=== PATIENT | female | born 1985 | race Caucasian/White ===

== ENCOUNTER 2016-10-15 15:45 | Emergency (ER) | payer MEDICAID ==
[~2016-10-15] VITALS: Wt 89.0 kg
[~2016-10-15 15:45] MED LIST: FERR240T9 PO; PREN-39 PO
[2016-10-15] MEDS ORDERED: morphine 4 MG/ML VIAL IV STA (17:26)
[2016-10-15] MEDS ORDERED: ONDANSETRON 4 MG INJ IV STA (17:26)
--- NOTE | 2016-10-15 17:37 | ERD ---
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 NO N/V/D HPI 30-year-old female otherwise healthy comes in with left-sided upper quadrant abdominal pain that started about 3 hours ago. She states that she was lying down in bed with her child and she had gotten up and when she did that she had sudden onset of sharp pain localized in the left upper quadrant. She denies any fevers or chills, nausea, vomiting or diarrhea. ROS All systems reviewed and are negative except as per history of present illness. Medications Home Meds Active Scripts Nitrofurantoin Monohyd Macrocr* (Macrobid*) 100 Mg Capsr, 100 MG PO BID for 7 Days, CAP Prov:RAFA DENISE PA-C 10/15/16 Naproxen* (Naprosyn*) 500 Mg Tablet, 500 MG PO BID Y for PAIN AND/OR INFLAMMATION, #30 TAB Prov:RAFA DENISE PA-C 10/15/16 Reported Medications Ferrous Gluconate (Iron) 1 Tab Tablet, 1 TAB PO DAILY 09/04/14 Vits W-Ca,Fe,Fa(<1MG) ( Vitamins) 1 Tab Tablet, 1 TAB PO DAILY 09/04/14 Allergies Allergies: Coded Allergies: No Known Allergy (Unverified , 10/15/14) PMhx/Soc History of Surgery: No Anesthesia Reaction: No Hx Neurological Disorder: No Hx Respiratory Disorders: No Hx Cardiac Disorders: No Hx Psychiatric Problems: No Hx Miscellaneous Medical Probl: No Hx Alcohol Use: No Hx Substance Use: No Hx Tobacco Use: No Physical Exam Vitals Vital Signs Date Time Temp Pulse Resp B/P Pulse Ox O2 Delivery O2 Flow Rate FiO2 10/15/16 19:19 98.4 62 20 121/69 100 Room Air 10/15/16 15:47 98.5 111 22 147/100 100 Physical Exam \General: Well-developed, well-nourished. The patient appears in no acute distress. HEENT: Head is normocephalic, atraumatic. No scleral icterus. Pupils are equal , round, and reactive. Oral mucous membranes are moist. No pharyngeal erythema. Neck: Supple. Nontender. Lungs: Clear to auscultation. Normal air movement. Heart: Regular rate and rhythm. S1 and S2 are normal. No murmurs, gallops, or rubs. Abdomen: Soft, tender left upper nondistended. Bowel sounds are normoactive. No CVA tenderness no McBurney's tenderness, no peritoneal signs or guarding. No hepatosplenomegaly. Extremities: No clubbing or cyanosis. Normal pulses. Moving extremities x 4. No weakness. Neurologic: Alert and oriented 3. No focal deficits. Skin: Normal turgor. No rash or lesions. Result Diagram: 10/15/16 1800 10/15/16 1800 Results 24 hrs Laboratory Tests Test 10/15/16 17:34 10/15/16 18:00 Urine Bacteria FEW Urine Bilirubin NEGATIVE Urine Clarity CLEAR Urine Color LT. YELLOW Urine Epithelial Cells FEW Urine Glucose NEGATIVE% Urine Hemoglobin NEGATIVE Urine Ketones NEGATIVE Urine Leukocyte Esterase TRACE Urine Microscopic RBC 0-2/HPF Urine Microscopic WBC 5-10/HPF Urine Nitrite NEGATIVE Urine Specific [place] <=1.005 Urine Total Protein NEGATIVE Urine Urobilinogen 0.2 E.U./dL Urine pH 6.0 Alanine Aminotransferase (ALT/SGPT) 24IU/L Albumin 4.2g/dl Albumin/Globulin Ratio 1.20 Alkaline Phosphatase 75IU/L Anion Gap 18 Aspartate Amino Transf (AST/SGOT) 24IU/L Basophils # 0.010^3/ul Basophils % 0.2% Blood Urea Nitrogen 7mg/dl Calcium Level 9.1mg/dl Carbon Dioxide Level 24mmol/L Chloride Level 104mmol/L Creatinine 0.55mg/dl Direct Bilirubin 0.00mg/dl Eosinophils # 0.110^3/ul Eosinophils % 0.8% Globulin 3.50g/dl Glucose Level 87mg/dl Hematocrit 42.1% Hemoglobin 14.4g/dl Indirect Bilirubin 0.2mg/dl Lipase 51U/L Lymphocytes # 3.210^3/ul Lymphocytes % 31.3% Mean Corpuscular Hemoglobin 29.9pg Mean Corpuscular Hemoglobin Concent 34.3g/dl Mean Corpuscular Volume 87.1fl Mean Platelet Volume 9.3fl Monocytes # 0.510^3/ul Monocytes % 5.0% Neutrophils # 6.510^3/ul Neutrophils % 62.7% Nucleated Red Blood Cells # 0.010^3/ul Nucleated Red Blood Cells % 0.0/100WBC Platelet Count 15869^3/UL Potassium Level 3.6mmol/L Red Blood Count 4.8310^6/ul Red Cell Distribution Width 13.3% Sodium Level 142mmol/L Total Bilirubin 0.2mg/dl Total Protein 7.7g/dl White Blood Count 10.310^3/ul Current Medications Medications (Trade) Dose Ordered Sig/[place] Route PRN Reason Start Time Stop Time Status Last Admin Dose Admin Morphine Sulfate (morphine) 4 mg ONCE STAT IV 10/15/16 17:26 10/15/16 17:27 DC 10/15/16 17:46 Ondansetron HCl (Zofran Inj) 4 mg ONCE STAT IV 10/15/16 17:26 10/15/16 17:27 DC 10/15/16 17:46 PROCEDURE: CT abdomen and pelvis without IV contrast. CLINICAL INDICATION: Abdominal pain TECHNIQUE: CT scan of the abdomen and pelvis without contrast was performed on the [employer] volumetric [address] scanner. The patient was scanned without intravenous contrast. Coronal and sagittal reformatted images were obtained from the axial source images. The CTDI vol is 20.23 mGy and the DLP is 1199.92 mGy-cm. COMPARISON: None. FINDINGS: CT abdomen: The lung bases are clear. The heart size is not enlarged and is without pericardial thickening or effusion. The liver is normal in size and density and is without focal mass or intrahepatic biliary dilatation. The spleen is normal in size and homogeneous in density. The stomach is grossly unremarkable. The pancreas as visualized is normal. The gallbladder and biliary tree are unremarkable and there is no evidence for common bile duct dilatation. The adrenal glands are symmetric and normal. The kidneys are symmetrically unremarkable as well. No renal calculus or obstructive uropathy or mass lesion is seen. The aorta is of normal in caliber . There is no retroperitoneal lymphadenopathy. The suresh hepatis region is clear. Scattered stool in the large bowel is seen. The small and large bowel and mesentery, as visualized, are otherwise unremarkable. The normal appendix is identified. CT pelvis: The pelvic organs are normal. The pelvic sidewalls and inguinal regions are clear. No pelvic mass, lymphadenopathy, or free fluid is seen. No acute inflammation is seen. The urinary bladder is within normal limits. The surrounding osseous structures are unremarkable. No osteolytic or osteoblastic lesion is detected. IMPRESSION: No acute pathology in the abdomen and pelvis. RPTAT: HPNM Jacob Montero, Physician Date Time Electronically viewed and signed by Jacob Montero, Physician on 10/15/2016 18 :30 / Procedures/MDM ED course: She was seen and evaluated, she was placed in a bed, IV line was established and she was given morphine 4 mg and Zofran 4 mg IV. Blood and urine were obtained. MDM: 30-year-old female presents with acute onset of left upper quadrant abdominal pain, differential diagnosis includes muscle strain, gastritis, GERD, other more emergent conditions include a splenic rupture, septic kidney stone, acute coronary syndrome among others. Her pain is reproducible and is in the left lower upper quadrant, I believe that her symptoms are most likely from a musculoskeletal strain versus gastritis. She is laying comfortably at this time without any pain. CT abdomen and pelvis was obtained, there is no evidence of splenic injury, no kidney stone, no masses. Blood work was also unremarkable, patient will be discharged, will be discharged with pain medication. Departure Diagnosis: Primary Impression: Abdominal pain Condition: RAFA Still PA-C Oct 15, 2016 17:37
[2016-10-15 17:51] LABS: ADD UMIC YES; URINE BILIRUBIN (Dip) NEGATIVE (NEGATIVE); URINE BLOOD (Dip) NEGATIVE (NEGATIVE); URINE COLOR LT. YELLOW (YELLOW); URINE GLUCOSE (Dip) NEGATIVE (NEGATIVE); URINE KETONES (Dip) NEGATIVE (NEGATIVE); URINE LEUKOCYTE ESTERASE (Dip) TRACE (NEGATIVE); URINE NITRITE (Dip) NEGATIVE (NEGATIVE); URINE TOTAL PROTEIN (Dip) NEGATIVE (NEGATIVE); URINE UROBILINOGEN (Dip) 0.2 E.U./dL (0.1-1.0)
[2016-10-15 17:59] LABS: BACTERIA,URINE FEW; URINE RBCS 0-2 /HPF (0)
[2016-10-15 18:26] LABS: BASOPHILS % 0.2 % (0.0-2.0); EOSINOPHILS # 0.1 10^3/ul (0.0-0.5); EOSINOPHILS % 0.8 % (0.0-7.0); HEMATOCRIT 42.1 % (37.0-47.0); HEMOGLOBIN 14.4 g/dl (12.0-16.0); LYMPHOCYTES # 3.2 10^3/ul (0.8-2.9); LYMPHOCYTES % 31.3 % (15.0-51.0); MEAN CORPUSCULAR HEMOGLOBIN 29.9 pg (29.0-33.0); MEAN CORPUSCULAR HGB CONC 34.3 g/dl (32.0-37.0); MEAN CORPUSCULAR VOLUME 87.1 fl (82.0-101.0); MEAN PLATELET VOLUME 9.3 fl (7.4-10.4); MONOCYTE # 0.5 10^3/ul (0.3-0.9); NEUTROPHIL # 6.5 10^3/ul (1.6-7.5); NEUTROPHILS % 62.7 % (39.0-77.0); PLATELET COUNT 315 10^3/UL (140-440); RED BLOOD COUNT 4.83 10^6/ul (4.20-5.40); RED CELL DISTRIBUTION WIDTH 13.3 % (11.5-14.5); UNCORRECTED WBC 10.3 10^3/ul (4.8-10.8); WHITE BLOOD COUNT 10.3 10^3/ul (4.8-10.8)
[2016-10-15 18:28] LABS: CONDITION 1
--- NOTE | 2016-10-15 18:31 | RADRPT ---
PROCEDURE: CT abdomen and pelvis without IV contrast. CLINICAL INDICATION: Abdominal pain TECHNIQUE: CT scan of the abdomen and pelvis without contrast was performed on the [employer] volumetric [address] scanner. The patient was scanned without intravenous contrast. Coronal and sagittal refo rmatted images were obtained from the axial source images. The CTDI vol is 20.23 mGy and the DLP is 1199.92 mGy-cm. COMPARISON: None. FINDINGS: CT abdomen: The lung bases are clear. The heart size is not enlarged and is without pericardial thickening or e ffusion. The liver is normal in size and density and is without focal mass or intrahepatic biliary dilatation . The spleen is normal in size and homogeneous in density. The stomach is grossly unremarkable. T he pancreas as visualized is normal. The gallbladder and biliary tree are unremarkable and there is no evidence for common bile duct dilatation. The adrenal glands are symmetric and normal. The kid neys are symmetrically unremarkable as well. No renal calculus or obstructive uropathy or mass lesi on is seen. The aorta is of normal in caliber . There is no retroperitoneal lymphadenopathy. The suresh hepatis region is clear. Scattered stool in the large bowel is seen. The small and large bowel and mesent maryanne, as visualized, are otherwise unremarkable. The normal appendix is identified. CT pelvis: The pelvic organs are normal. The pelvic sidewalls and inguinal regions are clear. No pelvic mass, lymphadenopathy, or free fluid is seen. No acute inflammation is seen. The urinary bladder is wit hin normal limits. The surrounding osseous structures are unremarkable. No osteolytic or osteoblastic lesion is detect ed. IMPRESSION: No acute pathology in the abdomen and pelvis. RPTAT: HPNM Physician Brett Date Time Electronically viewed and signed by Physician Brett on 10/15/2016 18:30 /
[2016-10-15 18:35] LABS: ALBUMIN 4.2 g/dl (3.3-4.9)
[2016-10-15 18:36] LABS: POTASSIUM 3.6 mmol/L (3.5-5.1)
[2016-10-15 18:38] LABS: ALBUMIN/GLOBULIN RATIO 1.2; BILIRUBIN,INDIRECT 0.2 mg/dl (0-1.1); BILIRUBIN,TOTAL 0.2 mg/dl (0.2-1.3); CREATININE 0.55 mg/dl (0.44-1.00); TOTAL PROTEIN 7.7 g/dl (6.1-8.1)
[2016-10-15 18:39] LABS: CALCIUM 9.1 mg/dl (8.4-10.2)
[2016-10-15] MEDS ORDERED: NITR-58 PO (19:05)
[2016-10-15] MEDS ORDERED: NAPR-260 PO (19:05)
[2016-10-15 19:19] VITALS: BP 121/69; PULSE 62; RESP 20; TEMP 98.4
== END 2016-10-15 19:20 | disposition home or self-care (01) ==
LOC: FTE 15:45
DX: R10.12 Left upper quadrant pain (principal)
CPT/HCPCS: 74176; 80053; 81001; 83690; 85025; 96374; 96375; J2270; J2405; Z7502; 81003

== ENCOUNTER 2016-12-03 19:19 | Emergency (ER) | payer MEDICAID ==
[~2016-12-03] VITALS: Ht 157.5 cm; Wt 93.5 kg
[~2016-12-03 19:19] MED LIST changes: +NAPR-260 PO; +NITR-58 PO
[2016-12-03 19:34] VITALS: Ht 157.5 cm; Wt 93.5 kg
[2016-12-03] MEDS ORDERED: IBUP-1542 PO (20:02)
[2016-12-03] MEDS ORDERED: CEPH-443 PO (20:02)
--- NOTE | 2016-12-03 21:40 | ERD ---
ER Documentation Chief Complaint Date/Time DATE: 12/03/16 TIME: 21:38 Chief Complaint right breast pain x 4 days HPI Patient is a 31-year-old female with no medical problems who presents with right -sided breast pain. She says that this is been there for the past 4-5 days. She said that she feels that the top of her nipple. She feels like when she touches it hurts and it hurts to put on her bra. She says that the right breast feels warmer than the left breast. She had subjective fever but has not taken her temperature. She has a "bump" under her right armpit. She tried Tylenol for pain. She does not currently have a primary doctor. ROS All systems reviewed and are negative except as per history of present illness. Medications Home Meds Active Scripts Ibuprofen* (Motrin*) 600 Mg Tab, 600 MG PO Q6H Y for PAIN AND OR ELEVATED TEMP, #30 TAB Prov:TAYLOR MINA MD 12/03/16 Cephalexin* (Keflex*) 500 Mg Capsule, 500 MG PO QID for 7 Days, CAP Prov:TAYLOR MINA MD 12/03/16 Nitrofurantoin Monohyd Macrocr* (Macrobid*) 100 Mg Capsr, 100 MG PO BID for 7 Days, CAP Prov:RAFA DENISE PA-C 10/15/16 Naproxen* (Naprosyn*) 500 Mg Tablet, 500 MG PO BID Y for PAIN AND/OR INFLAMMATION, #30 TAB Prov:RAFA DENISE PA-C 10/15/16 Reported Medications Ferrous Gluconate (Iron) 1 Tab Tablet, 1 TAB PO DAILY 09/04/14 Vits W-Ca,Fe,Fa(<1MG) ( Vitamins) 1 Tab Tablet, 1 TAB PO DAILY 09/04/14 Allergies Allergies: Coded Allergies: No Known Allergy (Unverified , 10/15/14) PMhx/Soc Medical and Surgical Hx: pt denies Medical Hx History of Surgery: No Anesthesia Reaction: No Hx Neurological Disorder: No Hx Respiratory Disorders: No Hx Cardiac Disorders: No Hx Psychiatric Problems: No Hx Miscellaneous Medical Probl: No Hx Alcohol Use: No Hx Substance Use: No Hx Tobacco Use: No Smoking Status: Never smoker FmHx Family History: diabetes Physical Exam Vitals Vital Signs Date Time Temp Pulse Resp B/P Pulse Ox O2 Delivery O2 Flow Rate FiO2 12/03/16 19:34 98.5 93 20 131/70 99 Physical Exam Const: No acute distress Head: Atraumatic Eyes: Normal Conjunctiva ENT: Normal External Ears, Nose and Mouth. Neck: Full range of motion..~ No meningismus. Resp: Clear to auscultation bilaterally Cardio: Regular rate and rhythm, no murmurs Abd: Soft, non tender, non distended. Normal bowel sounds Skin: Small area of folliculitis the right armpit, no obvious fluctuance of the right breast, mild warmth to touch compared to the left Back: No midline or flank tenderness Ext: No cyanosis, or edema Neur: Awake and alert Psych: Normal Mood and Affect Procedures/MDM Patient is a 31-year-old female who presents with a folliculitis of the right armpit. The patient may have an early cellulitis and I will treat with Keflex. The patient will be given ibuprofen for pain and inflammation as well. There is no obvious breast masses palpated. The patient will need close follow-up with the local clinics within 24-48 hours for reevaluation she does not currently have a primary doctor. I see no signs of abscess that would require incision and drainage at this time. The patient can return for any worsening symptoms. The patient should follow-up closely. Departure Diagnosis: Primary Impression: Folliculitis Additional Impression: Breast pain Condition: Fair Patient Instructions: Folliculitis Referrals: Your doctor Additional Instructions: Llame al doctor ERIN y justin hmuphrey BOBBY PARA DENTRO DE 1-2 FRANCO.Dgale a la secretaria que nosotros le instruimos hacer esta bobby.Avise o llame si wilburn condicin se empeora antes de la bobby. Regresa aqui si peor o no mejor. TAYLOR MINA MD Dec 03, 2016 21:40
== END 2016-12-03 20:52 | disposition home or self-care (01) ==
LOC: FTE 19:19
DX: L73.9 Follicular disorder, unspecified (principal)
CPT/HCPCS: 99283

== ENCOUNTER 2017-06-17 19:13 | Emergency (ER) | payer MEDICAID ==
[~2017-06-17] VITALS: Ht 160 cm; Wt 97.0 kg
[~2017-06-17 19:13] MED LIST changes: +CEPH-443 PO; +IBUP-1542 PO
[2017-06-17 20:26] VITALS: Ht 160 cm; Wt 97.0 kg
--- NOTE | 2017-06-17 22:43 | ERD ---
ER Documentation Chief Complaint Date/Time DATE: 06/17/17 TIME: 22:38 Chief Complaint fall today in stairs; fall on buttocks; pain on back/lower belly; HPI This is a 31-year-old female who is 17 weeks presenting to the emergency department stating that she had a ground-level fall from steps and landed on her by talk earlier today.Patient is complaining of lower back pain that is increased with movement. Patient states that she has mild to moderate pelvic pain that has been subsiding. Patient denies taking any medications. Denies any vaginal bleedingShe denies neuro deficits, saddle anesthesia or bladder or bowel incontinence ROS All systems reviewed and are negative except as per history of present illness. Medications Home Meds Active Scripts Acetaminophen* (Tylenol*) 325 Mg Tablet, 2 TAB PO Q6 Y for PAIN AND OR ELEVATED TEMP, #20 TAB Prov:RICHARD ESCALANTE PA-C 06/17/17 Ibuprofen* (Motrin*) 600 Mg Tab, 600 MG PO Q6H Y for PAIN AND OR ELEVATED TEMP, #30 TAB Prov:TAYLOR MINA MD 12/03/16 Cephalexin* (Keflex*) 500 Mg Capsule, 500 MG PO QID for 7 Days, CAP Prov:TAYLOR MINA MD 12/03/16 Nitrofurantoin Monohyd Macrocr* (Macrobid*) 100 Mg Capsr, 100 MG PO BID for 7 Days, CAP Prov:RAFA DENISE PA-C 10/15/16 Naproxen* (Naprosyn*) 500 Mg Tablet, 500 MG PO BID Y for PAIN AND/OR INFLAMMATION, #30 TAB Prov:RAFA DENISE PA-C 10/15/16 Reported Medications Ferrous Gluconate (Iron) 1 Tab Tablet, 1 TAB PO DAILY 09/04/14 Vits W-Ca,Fe,Fa(<1MG) ( Vitamins) 1 Tab Tablet, 1 TAB PO DAILY 09/04/14 Allergies Allergies: Coded Allergies: No Known Allergy (Unverified , 10/15/14) PMhx/Soc Medical and Surgical Hx: pt denies Medical Hx, pt denies Surgical Hx History of Surgery: No Anesthesia Reaction: No Hx Neurological Disorder: No Hx Respiratory Disorders: No Hx Cardiac Disorders: No Hx Psychiatric Problems: No Hx Miscellaneous Medical Probl: No Hx Alcohol Use: No Hx Substance Use: No Hx Tobacco Use: No Smoking Status: Never smoker Physical Exam Vitals Vital Signs Date Time Temp Pulse Resp B/P Pulse Ox O2 Delivery O2 Flow Rate FiO2 06/18/17 00:12 97.6 83 14 117/74 97 Room Air 06/17/17 20:26 99.0 92 20 130/61 100 Physical Exam GENERAL: well-developed/well-nourished, in no apparent distress, non-toxic appearing HENT: NC/AT, moist mucous membranes EYES: Conjunctiva normal NECK: Supple, no lymphadenopathy PULM: CTA bilaterally, no rales, rhonchi, or wheezing heard CV: Normal S1S2, RRR, good capillary refill GI: Soft, non-distended, non-tender to palpation Normal bowel sounds, no masses or organomegaly felt on exam No gross peritonitis, no bruits Negative Rovsing, negative Watts, negative McBurney's point, Negative CVAT BACK: No masses, patient was tender palpation in the lumbar spine paraspinal muscles EXT: No clubbing, cyanosis, or edema NEURO: Alert and Orientated SKIN: Intact, normal turgor PSYCH: Normal mood and mentation Result Diagram: 06/17/17 2340 Results 24 hrs Laboratory Tests Test 06/17/17 23:40 White Blood Count 10.710^3/ul Red Blood Count 4.4010^6/ul Hemoglobin 13.2g/dl Hematocrit 37.8% Mean Corpuscular Volume 85.9fl Mean Corpuscular Hemoglobin 30.0pg Mean Corpuscular Hemoglobin Concent 34.9g/dl Red Cell Distribution Width 12.8% Platelet Count 62393^3/UL Mean Platelet Volume 10.9fl Neutrophils % 59.8% Lymphocytes % 32.4% Monocytes % 6.0% Eosinophils % 1.2% Basophils % 0.3% Nucleated Red Blood Cells % 0.0/100WBC Neutrophils # 6.410^3/ul Lymphocytes # 3.510^3/ul Monocytes # 0.610^3/ul Eosinophils # 0.110^3/ul Basophils # 0.010^3/ul Nucleated Red Blood Cells # 0.010^3/ul Urine Color YELLOW Urine Clarity CLEAR Urine pH 5.0 Urine Specific [place] 1.019 Urine Ketones NEGATIVEmg/dL Urine Nitrite NEGATIVEmg/dL Urine Bilirubin NEGATIVEmg/dL Urine Urobilinogen NEGATIVEmg/dL Urine Leukocyte Esterase NEGATIVELeu/ul Urine Hemoglobin NEGATIVEmg/dL Urine Glucose NEGATIVEmg/dL Urine Total Protein NEGATIVEmg/dl Procedures/MDM This is a 31-year-old female who is 17 weeks presenting to the emergency department complaining of back pain and pelvic pain status post ground -level fall that occurred earlier today. There was no evidence of vertebral fracture or subluxation. Patient appears well, stable vital signs.No evidence of at this time. Patient stable to be discharged home to follow-up with primary care physician. Prescription for Tylenol was provided OB US: 1. Single live intrauterine gestation of 17 weeks 1 day menstrual age by ultrasound dates. 2. The estimated date of delivery is 11/24/2017. Departure Diagnosis: Primary Impression: Back pain Additional Impression: Pelvic pain Condition: Stable RICHARD ESCALANTE PA-C Jun 17, 2017 22:43
[2017-06-17] MEDS ORDERED: ACET325T33 PO (22:44)
--- NOTE | 2017-06-17 23:11 | RADRPT ---
PROCEDURE: US OB. CLINICAL INDICATION: . Pelvic pain. TECHNIQUE: Multiple sonographic images of the uterus were obtained. The images were revi ewed on a PACS workstation. COMPARISON: No prior studies are available for comparison. FINDINGS: There is a single live intrauterine gestation. heart rate is 148 beats per minute. Measurements were made in order to determine age. The results are as follows: BPD = 3.56 cm. HC = 12.90 cm. AC = 12.12 cm. FL = 2.34 cm. Estimated weight is 191 +/- 29 grams. LMP growth percentile is 66 %. Menstrual age by ultrasound dates is 17 weeks 1 day. The estimated date of delivery is 11/24/2017. Position is cephalic and placenta is posterior grade 1. There is no evidence for an abruption or bernardo centa previa. IMPRESSION: 1. Single live intrauterine gestation of 17 weeks 1 day menstrual age by ultrasound dates. 2. The estimated date of delivery is 11/24/2017. RPTAT: QQ .Blu Townsend MD, Date Time Electronically viewed and signed by .Blu Townsend MD, on 06/17/2017 23:10 .R/
[2017-06-17 23:49] LABS: BASOPHILS % 0.3 % (0.0-2.0); EOSINOPHILS # 0.1 10^3/ul (0.0-0.5); EOSINOPHILS % 1.2 % (0.0-7.0); HEMATOCRIT 37.8 % (37.0-47.0); HEMOGLOBIN 13.2 g/dl (12.0-16.0); LYMPHOCYTES # 3.5 10^3/ul (0.8-2.9); LYMPHOCYTES % 32.4 % (15.0-51.0); MEAN CORPUSCULAR HGB CONC 34.9 g/dl (32.0-37.0); MEAN CORPUSCULAR VOLUME 85.9 fl (82.0-101.0); MEAN PLATELET VOLUME 10.9 fl (7.4-10.4); MONOCYTE # 0.6 10^3/ul (0.3-0.9); NEUTROPHIL # 6.4 10^3/ul (1.6-7.5); NEUTROPHILS % 59.8 % (39.0-77.0); PLATELET COUNT 270 10^3/UL (140-415); RED CELL DISTRIBUTION WIDTH 12.8 % (11.5-14.5); WHITE BLOOD COUNT 10.7 10^3/ul (4.8-10.8)
[2017-06-17 23:52] LABS: ADD UMIC NO; UR ASCORBIC ACID NEGATIVE (NEGATIVE); UR BILIRUBIN (Dip) NEGATIVE (NEGATIVE); UR BLOOD (Dip) NEGATIVE (NEGATIVE); UR CLARITY CLEAR (CLEAR); UR COLOR YELLOW (YELLOW); UR GLUCOSE (Dip) NEGATIVE (NEGATIVE); UR KETONES (Dip) NEGATIVE (NEGATIVE); UR LEUKOCYTE ESTERASE (Dip) NEGATIVE Leu/ul (NEGATIVE); UR NITRITE (Dip) NEGATIVE (NEGATIVE); UR SPECIFIC GRAVITY (Dip) 1.019 (1.003-1.030); UR TOTAL PROTEIN (Dip) NEGATIVE (NEGATIVE); UR UROBILINOGEN (Dip) NEGATIVE (NEGATIVE)
[2017-06-18 00:12] VITALS: BP 117/74; PULSE 83; RESP 14; TEMP 97.6
== END 2017-06-18 00:17 | disposition home or self-care (01) ==
LOC: FTE 19:13
DX: O26.892 Other specified pregnancy related conditions, second trimester (principal); R10.2 Pelvic and perineal pain; M54.5 Low back pain; O99.89 Other specified diseases and conditions complicating pregnancy, childbirth and the puerperium; Z3A.17 17 weeks gestation of pregnancy
CPT/HCPCS: 76805; 81003; 85025; 86900; 86901

== ENCOUNTER 2017-08-03 02:14 | Emergency (ER) | payer MEDICAID ==
[~2017-08-03] VITALS: Ht 162.6 cm; Wt 96.5 kg
[~2017-08-03 02:14] MED LIST changes: +ACET325T33 PO
[2017-08-03 02:16] VITALS: Ht 162.6 cm; Wt 96.5 kg
[2017-08-03] MEDS ORDERED: ALBU8.5H3 INH (04:56)
[2017-08-03] MEDS ORDERED: AZIT250T94 PO (04:56)
[2017-08-03] MEDS ORDERED: PRED20TA PO (04:56)
--- NOTE | 2017-08-03 05:00 | ERD ---
ER Documentation Chief Complaint Chief Complaint sore throat x 1week, 23 weeks , denies OB problems HPI This is 31-year-old female who is 23 weeks complains of 4-5 days of runny nose cough congestion sore throat with productive sputum that is clear. She says she has some subjective fevers at home. She has no abdominal pain no pelvic cramps no vaginal bleeding no back pain dysuria no nausea vomiting chest pain or shortness of breath. She says her main complaint is her throat but it is very sore and hurts to swallow she is able to swallow secretions and eat and drink food ROS All systems reviewed and are negative except as per history of present illness. Medications Home Meds Active Scripts Prednisone* (Prednisone*) 20 Mg Tab, 40 MG PO DAILY for 4 Days, TAB Prov:KATY FRAZIER DO 08/03/17 Albuterol Sulfate* (Proair HFA*) 8.5 Gm Hfa.aer.ad, 2 PUFF INH Q4, #1 INHALER Prov:KATY FRAZIER DO 08/03/17 Azithromycin* (Zithromax*) 250 Mg Tablet, 250 MG PO .ZPACK DIRECTED, #6 TAB TAKE 500 MG (2 TABS) THE FIRST DAY THEN 250 MG (1 TAB) DAYS 2-5 Prov:KATY FRAZIER DO 08/03/17 Acetaminophen* (Tylenol*) 325 Mg Tablet, 2 TAB PO Q6 Y for PAIN AND OR ELEVATED TEMP, #20 TAB Prov:RICHARD ESCALANTE PA-C 06/17/17 Ibuprofen* (Motrin*) 600 Mg Tab, 600 MG PO Q6H Y for PAIN AND OR ELEVATED TEMP, #30 TAB Prov:TAYLOR MINA MD 12/03/16 Cephalexin* (Keflex*) 500 Mg Capsule, 500 MG PO QID for 7 Days, CAP Prov:TAYLOR MINA MD 12/03/16 Nitrofurantoin Monohyd Macrocr* (Macrobid*) 100 Mg Capsr, 100 MG PO BID for 7 Days, CAP Prov:RAFA DENISE PA-C 10/15/16 Naproxen* (Naprosyn*) 500 Mg Tablet, 500 MG PO BID Y for PAIN AND/OR INFLAMMATION, #30 TAB Prov:RAFA DENISE PA-C 10/15/16 Reported Medications Ferrous Gluconate (Iron) 1 Tab Tablet, 1 TAB PO DAILY 09/04/14 Vits W-Ca,Fe,Fa(<1MG) ( Vitamins) 1 Tab Tablet, 1 TAB PO DAILY 09/04/14 Allergies Allergies: Coded Allergies: No Known Allergy (Unverified , 10/15/14) PMhx/Soc Medical and Surgical Hx: pt denies Medical Hx, pt denies Surgical Hx History of Surgery: No Anesthesia Reaction: No Hx Neurological Disorder: No Hx Respiratory Disorders: No Hx Cardiac Disorders: No Hx Psychiatric Problems: No Hx Miscellaneous Medical Probl: No Hx Alcohol Use: No Hx Substance Use: No Hx Tobacco Use: No Smoking Status: Never smoker FmHx Family History: No coronary disease Physical Exam Vitals Vital Signs Date Time Temp Pulse Resp B/P Pulse Ox O2 Delivery O2 Flow Rate FiO2 08/03/17 02:16 98.9 107 20 125/66 98 Physical Exam Const: Well-developed, well-nourished Head: Atraumatic, normocephalic Eyes: Normal Conjunctiva, PERRLA, EOMI, normal sclera, no nystagmus ENT: Normal External Ears, rhinitis with oropharyngeal erythema without exudate, tonsillar erythema with mild swelling, moist mucus membranes. Neck: Full range of motion. No meningismus, no lymphadenopathy. Resp: Clear to auscultation bilaterally, no wheezing, rhonchi, rales Cardio: Regular rate and rhythm, no murmurs, S1 S2 present Abd: Soft, non tender x 4, gravid, non distended. Normal bowel sounds, no guarding or rebound, no pulsitile abdominal masses or bruits Skin: No petechiae or rashes, no ecchymosis , no maculopapular rash Back: No midline or flank tenderness Ext: No cyanosis, or edema, FROM x 4, normal inspection, neurovascularly intact x 4 Neur: Awake and alert, STR 5/5 x 4, sensation intact x 4, no focal findings, cerebellum intact Psych: Normal Mood and Affect Procedures/MDM Patient has a URI/bronchitis with pharyngitis we will treat with Zithromax, albuterol inhaler and prednisone Departure Diagnosis: Primary Impression: Pharyngitis Pharyngitis/tonsillitis etiology: unspecified etiology Qualified Code: J02.9 - Pharyngitis, unspecified etiology Additional Impressions: URI (upper respiratory infection) URI type: unspecified viral URI Qualified Code: J06.9 - Viral upper respiratory tract infection Bronchitis Condition: Stable Patient Instructions: Preventing Common Respiratory Infections KATY FRAZIER DO Aug 03, 2017 05:00
== END 2017-08-03 05:01 | disposition home or self-care (01) ==
LOC: FTE 02:14
DX: O99.512 Diseases of the respiratory system complicating pregnancy, second trimester (principal); J06.9 Acute upper respiratory infection, unspecified; J20.9 Acute bronchitis, unspecified; Z3A.23 23 weeks gestation of pregnancy
CPT/HCPCS: 99284

== ENCOUNTER 2017-08-06 22:50 | Outpatient (CLI) | payer MEDICAID ==
[~2017-08-06] VITALS: Ht 157.5 cm; Wt 97.3 kg
[~2017-08-06 22:50] MED LIST changes: +ALBU8.5H3 INH; +AZIT250T94 PO; +PRED20TA PO
[2017-08-06] MEDS ORDERED: FOL8 PO (23:39)
[2017-08-06 23:40] VITALS: Ht 157.5 cm; Wt 97.3 kg
[2017-08-06 23:41] VITALS: BP 122/71; PULSE 79; RESP 18
--- NOTE | 2017-08-07 00:55 | RADRPT ---
PROCEDURE: ULTRASOUND LIMITED ABDOMEN CLINICAL INDICATION: 31-year-old female with right upper quadrant pain. TECHNIQUE: Multiple sonographic of the right upper quadrant of the abdomen were obtained. The imag es were reviewed on a PACS workstation. COMPARISON: CT abdomen/pelvis October 15, 2016. FINDINGS: The pancreas is not well visualized secondary to overlying bowel gas. The liver displays normal echogenicity. The liver measures 15.5 cm in length. No evidence of intrah epatic biliary ductal dilatation is seen. The portal and hepatic veins are unremarkable. The gallbladder demonstrates no wall thickening, sludge, nor stones. No pericholecystic fluid is see n. The common bile duct measures 1.9 mm and is not dilated. The right kidney displays normal echogenicity. The right kidney measures 11.7 x 5.1 x 6.3 cm. No olivia iectasis or hydronephrosis is seen. No free fluid is seen. IMPRESSION: Unremarkable right upper quadrant abdominal ultrasound. .Julio Bhatti MD, MD Date Time Electronically viewed and signed by .Julio Bhatti MD, on 08/07/2017 00:55 .M/
[2017-08-07 01:03] LABS: BASOPHILS % 0.2 % (0.0-2.0); EOSINOPHILS % 0.3 % (0.0-7.0); HEMATOCRIT 35.2 % (37.0-47.0); HEMOGLOBIN 11.8 g/dl (12.0-16.0); LYMPHOCYTES # 3.1 10^3/ul (0.8-2.9); MEAN CORPUSCULAR HEMOGLOBIN 29.4 pg (29.0-33.0); MEAN CORPUSCULAR HGB CONC 33.5 g/dl (32.0-37.0); MEAN CORPUSCULAR VOLUME 87.8 fl (82.0-101.0); MEAN PLATELET VOLUME 10.7 fl (7.4-10.4); MONOCYTE # 0.7 10^3/ul (0.3-0.9); MONOCYTES % 5.9 % (0.0-11.0); NEUTROPHIL # 8.4 10^3/ul (1.6-7.5); NEUTROPHILS % 68.1 % (39.0-77.0); PLATELET COUNT 322 10^3/UL (140-415); RED BLOOD COUNT 4.01 10^6/ul (4.20-5.40); RED CELL DISTRIBUTION WIDTH 12.6 % (11.5-14.5); WHITE BLOOD COUNT 12.4 10^3/ul (4.8-10.8)
[2017-08-07 01:14] LABS: ADD UMIC NO; UR ASCORBIC ACID NEGATIVE (NEGATIVE); UR BILIRUBIN (Dip) NEGATIVE (NEGATIVE); UR BLOOD (Dip) NEGATIVE (NEGATIVE); UR CLARITY CLEAR (CLEAR); UR COLOR STRAW (YELLOW); UR GLUCOSE (Dip) NEGATIVE (NEGATIVE); UR KETONES (Dip) NEGATIVE (NEGATIVE); UR LEUKOCYTE ESTERASE (Dip) NEGATIVE Leu/ul (NEGATIVE); UR NITRITE (Dip) NEGATIVE (NEGATIVE); UR SPECIFIC GRAVITY (Dip) 1.006 (1.003-1.030); UR TOTAL PROTEIN (Dip) NEGATIVE (NEGATIVE); UR UROBILINOGEN (Dip) NEGATIVE (NEGATIVE)
[2017-08-07 01:24] LABS: ALBUMIN 3.3 g/dl (3.3-4.9); ALBUMIN/GLOBULIN RATIO 0.91; BILIRUBIN,INDIRECT 0.1 mg/dl (0-1.1); BILIRUBIN,TOTAL 0.1 mg/dl (0.2-1.3); CALCIUM 9.2 mg/dl (8.4-10.2); CREATININE 0.47 mg/dl (0.44-1.00); POTASSIUM 3.5 mmol/L (3.5-5.1); TOTAL PROTEIN 6.9 g/dl (6.1-8.1)
[2017-08-07] MEDS ORDERED: AL HYDROX/MG HYDROX/SIMETH 30 ML CUP PO ONE (02:30)
--- NOTE | 2017-08-07 03:44 | TRIAGE ---
OB Triage Datetime Report Generated by CPN: 08/07/2017 03:44 Datetime: 08/07/2017 02:30 Labor Evaluation Frequency: 0 Monitor Mode: External Heart Rate FHR Baseline Rate: 135 Monitor Mode: External US FHR Baseline Changes: No Baseline Change Variability: Moderate 6-25 bpm Accelerations: 15X15 Decelerations: None Category: Category I Datetime: 08/07/2017 01:30 Labor Evaluation Frequency: 0 Monitor Mode: External Heart Rate FHR Baseline Rate: 135 Monitor Mode: External US FHR Baseline Changes: No Baseline Change Variability: Moderate 6-25 bpm Accelerations: 15X15 Decelerations: None Category: Category I Datetime: 08/07/2017 00:30 Stage of : OB Triage Labor Evaluation Frequency: 0 Monitor Mode: External (Annotations: DIFFICULT TO TRACE ) Monitor Mode: External US (Annotations: DIFFICULT TO TRACE DUE TO GESTATIONAL AGE) Datetime: 08/06/2017 23:30 Stage of : OB Triage Labor Evaluation Frequency: None noted or palpated Monitor Mode: External Resting Tone [place]: Relaxed Heart Rate FHR Baseline Rate: 140 Monitor Mode: External US Variability: Moderate 6-25 bpm Accelerations: 15X15 Decelerations: None Comments: Appropriate for gestational age Datetime: 08/06/2017 23:24 Stage of : OB Triage Datetime: 08/06/2017 23:08 Stage of : OB Triage Assessment Type: Triage Maternal Assessment Level of Consciousness: Fully Conscious DTR's/Clonus: DTRs 2+; No Clonus Headache: Denies Blurred Vision: No Respiratory Effort: Unlabored; Regular Rhythm; Equal Expansion Breath Sounds, Left: Clear and Equal Breath Sounds, Right: Clear and Equal Nausea/Vomiting: Present (Annotations: Nausea only) RUQ Epigastric Pain: Denies Lower Extremities Edema: None Degree: None Upper Extremities Edema: None Degree: None Facial Edema: None Temperature Route: Oral Fall Risk Assessment History of Falling: (0) No Secondary Diagnosis: (0) No Ambulatory Aid: (0) Bedrest/Nurse Assist IV Therapy: (0) No Gait: (0) Normal/Bedrest/Immobile Mental Status: (0) Oriented to Own Ability Fall Score: 0 Fall Risk Score Definition: No Risk: No action required Pain Assessment Pain Scale: 8 Pain Presence: Constant Pain Type: Sharp; Ache Pain Location: Abdomen; Back Pain Relief Measures: Comfort Measures Datetime: 08/06/2017 23:04 Time of Arrival: 08/06/2017 22:44 EGA: 24.1 Arrived By: Wheelchair Arrived From: Home Chief Complaint: Constant upper abdominal _ lower back pain after carrying bags upstairs Movement: Present Contractions: Denies/Absent Rupture of Membranes: Denies Vaginal Bleeding: None Vaginal Discharge: Denies Abdominal Trauma: Not Applicable Patient Complaints: Back Pain; Dizziness; Other Time Provider Notified: 08/06/2017 23:24 Provider Notified: Initial Plan: CBC, CMP, UA, C_S, U/S of [facility]
--- NOTE | 2017-08-07 05:46 | PN ---
Triage Information Date/Time 08/07/17 Reason for visit: Abd/pelvic pain Weeks of Gestation 24w1d /Para Diabetes: none Hypertention: none Additional information finished antibiotics for throat infection today c/o pain on upper abdomen constant Objective Vital Signs Date Time Temp Pulse Resp B/P Pulse Ox O2 Delivery O2 Flow Rate FiO2 08/06/17 23:41 97.7 79 18 122/71 Room Air Heart Rate: 140's Contractions: None Exam mild tenderness on RUQ and epigastrium Results/Medications Result Diagram: 08/07/174108/07/1741 Results 24 hrs Laboratory Tests Test 08/07/17 00:42 08/07/17 00:51 White Blood Count 12.4 H Red Blood Count 4.01 L Hemoglobin 11.8 L Hematocrit 35.2 L Mean Corpuscular Volume 87.8 Mean Corpuscular Hemoglobin 29.4 Mean Corpuscular Hemoglobin Concent 33.5 Red Cell Distribution Width 12.6 Platelet Count 322 Mean Platelet Volume 10.7 H Neutrophils % 68.1 Lymphocytes % 25.0 Monocytes % 5.9 Eosinophils % 0.3 Basophils % 0.2 Nucleated Red Blood Cells % 0.0 Neutrophils # 8.4 H Lymphocytes # 3.1 H Monocytes # 0.7 Eosinophils # 0.0 Basophils # 0.0 Nucleated Red Blood Cells # 0.0 Sodium Level 140 Potassium Level 3.5 Chloride Level 107 Carbon Dioxide Level 22 Anion Gap 15 Blood Urea Nitrogen 8 Creatinine 0.47 Glucose Level 124 Calcium Level 9.2 Total Bilirubin 0.1 L Direct Bilirubin 0.00 Indirect Bilirubin 0.1 Aspartate Amino Transf (AST/SGOT) 20 Alanine Aminotransferase (ALT/SGPT) 31 Alkaline Phosphatase 84 Total Protein 6.9 Albumin 3.3 Globulin 3.60 H Albumin/Globulin Ratio 0.91 Urine Color STRAW Urine Clarity CLEAR Urine pH 7.0 Urine Specific [place] 1.006 Urine Ketones NEGATIVE Urine Nitrite NEGATIVE Urine Bilirubin NEGATIVE Urine Urobilinogen NEGATIVE Urine Leukocyte Esterase NEGATIVE Urine Hemoglobin NEGATIVE Urine Glucose NEGATIVE Urine Total Protein NEGATIVE Medications [place] 30cc Imaging Results u/s abdomen neg for GB Disposition: Discharge Assessment/Plan [id number] epigastric pain resolve plan d/s home f/u at her OB CALLY WARNER MD Aug 07, 2017 05:46
== END 2017-08-07 03:15 | disposition home or self-care (01) ==
LOC: OBT 22:50 → L-D 22:52 → OBT 08-07 03:15
PROVIDERS: ATTEND Obstetrics & Gynecology
DX: O26.892 Other specified pregnancy related conditions, second trimester (principal); R10.13 Epigastric pain; Z3A.24 24 weeks gestation of pregnancy
CPT/HCPCS: 76705; 80053; 81003; 85025; 87086; Z7500; Z7610; G0463

== ENCOUNTER 2017-10-07 22:25 | Outpatient (CLI) | END 2017-10-08 02:22 | disposition home or self-care (01) ==

== ENCOUNTER 2017-10-22 14:21 | Outpatient (CLI) | END 2017-10-22 22:44 | disposition home or self-care (01) ==

== ENCOUNTER 2017-10-24 12:21 | Outpatient (CLI) | END 2017-10-24 15:25 | disposition home or self-care (01) ==

== ENCOUNTER 2017-10-30 16:35 | Outpatient (CLI) | END 2017-10-30 18:01 | disposition home or self-care (01) ==

== ENCOUNTER 2019-01-08 17:45 | Emergency (ER) | payer MEDICAID ==
[~2019-01-08] VITALS: Ht 167.6 cm; Wt 89.9 kg
[~2019-01-08 17:45] MED LIST changes: -ACET325T33 PO; -ALBU8.5H3 INH; -AZIT250T94 PO; -CEPH-443 PO; -IBUP-1542 PO; -NAPR-260 PO; -NITR-58 PO; -PRED20TA PO
[2019-01-08 17:53] VITALS: BP 145/70; PULSE 73; RESP 20; Ht 167.6 cm; Wt 89.9 kg
[2019-01-08] MEDS ORDERED: MAGNESIUM CITRATE 300 ML BTL PO ONE (22:00)
[2019-01-08] MEDS ORDERED: MAGN296S40 PO (23:58)
[2019-01-08] MEDS ORDERED: DOCU-144 PO (23:58)
--- NOTE | 2019-01-09 02:05 | ERD ---
ER Documentation Chief Complaint Chief Complaint Complains of abdominal pain x 4 days with a hx of Constipation HPI History of Present Illness: 33-year-old female with chronic constipation coming in today with complaint of abdominal pain. Patient reports she has not had a bowel movement in 4 days. Patient with mild nausea, no vomiting, positive bloating. Patient denies any other associated symptoms. At home pharmacological/nonpharmacological treatment for symptoms: Probiotics, fiber, Ex-Lax Denies social concerns; Denies recent foreign travel ROS All systems reviewed and are negative except as per history of present illness. Medications Home Meds Active Scripts Docusate Sodium* (Colace*) 100 Mg Capsule, 100 MG PO TID for CONSTIPATION, #30 CAP Prov:LUIS CARLOS CHOWDHURY V GAS WELDER APPRENTICE 01/08/19 Magnesium Citrate* (Magnesium Citrate*) 296 Ml Solution, 296 ML PO ONCE for CONSTIPATION, #1 BOTTLE Prov:LUIS CARLOS CHOWDHURY V GAS WELDER APPRENTICE 01/08/19 Reported Medications Ferrous Gluconate (Iron) 1 Tab Tablet, 1 TAB PO DAILY 09/04/14 Vits W-Ca,Fe,Fa(<1MG) ( Vitamins) 1 Tab Tablet, 1 TAB PO DAILY 09/04/14 Allergies Allergies: Coded Allergies: No Known Allergy (Unverified , 01/08/19) PMhx/Soc Medical and Surgical Hx: pt denies Medical Hx History of Surgery: Yes (c-seciton x) Anesthesia Reaction: No Hx Neurological Disorder: No Hx Respiratory Disorders: No Hx Cardiac Disorders: No Hx Psychiatric Problems: No Hx Miscellaneous Medical Probl: No Hx Alcohol Use: No Hx Substance Use: No Hx Tobacco Use: No Smoking Status: Never smoker FmHx Family History: No coronary disease Physical Exam Vitals Vital Signs Date Temp Pulse Resp B/P (MAP) Pulse Ox O2 O2 Flow FiO2 Time Delivery Rate 01/08/19 98.7 73 20 145/70 99 17:53 (95) Physical Exam Const: No acute distress Head: Atraumatic Eyes: Normal Conjunctiva ENT: Normal External Ears, Nose and Mouth. Neck: Full range of motion. No meningismus. Resp: Clear to auscultation bilaterally Cardio: Regular rate and rhythm, no murmurs Abd: Soft, tenderness to palpation over epigastric, non distended. Normal bowel sounds. Patient is obese. Skin: No petechiae or rashes Back: No midline or flank tenderness Ext: No cyanosis, or edema Neur: Awake and alert Psych: Normal Mood and Affect Results 24 hrs Laboratory Tests Test 01/08/19 22:26 POC Beta HCG, Qualitative NEGATIVE Current Medications Medications Dose Sig/Lawrence Start Time Status Last (Trade) Ordered Route PRN Stop Time Admin Dose Reason Admin Magnesium 300 ml ONCE ONCE 01/08/19 DC 01/08/19 Citrate PO 22:00 01/08/19 22:39 (Citroma) 22:03 Procedures/MDM ED course includes a thorough examination and history. Medications: Magnesium titrate Imaging: Abdomen KUB/abdomen upright labs: Urine Low suspicion for life-threatening medical emergency. Low suspicion for acute abdominal emergency. Low suspicion for bowel obstruction. Otherwise healthy patient presenting with constellation of symptoms likely representing constipation as characterized by history, physical exam findings, lab findings, radiology findings. Urine negative. X-ray results showing: MPRESSION: Nonspecific bowel gas pattern with several air-fluid in nondilated bowel. RPTAT: HJES .Cortez Kelly MD, MD No respiratory distress, otherwise relatively well appearing and nontoxic. Patient educated on diagnoses, prescriptions, follow-up care, return precautions. Strict return precautions given for worsening condition; questions answered discharge. Disposition for discharge with followup in 2 days with PCP/clinic. Departure Diagnosis: Primary Impression: Constipation Constipation type: unspecified constipation type Qualified Codes: K59.00 - Constipation, unspecified Condition: Stable Patient Instructions: Treating Constipation, Constipation (Adult) Referrals: [facility] YOU HAVE RECEIVED A MEDICAL SCREENING EXAM AND THE RESULTS INDICATE THAT YOU DO NOT HAVE A CONDITION THAT REQUIRES URGENT TREATMENT IN THE EMERGENCY DEPARTMENT. FURTHER EVALUATION AND TREATMENT OF YOUR CONDITION CAN WAIT UNTIL YOU ARE SEEN IN YOUR DOCTORS OFFICE WITHIN THE NEXT 1-2 DAYS. IT IS YOUR RESPONSIBILITY TO MAKE AN APPOINTMENT FOR FOLOW-UP CARE. IF YOU HAVE A PRIMARY DOCTOR --you should call your primary doctor and schedule an appointment IF YOU DO NOT HAVE A PRIMARY DOCTOR YOU CAN CALL OUR PHYSICIAN REFERRAL HOTLINE AT IF YOU CAN NOT AFFORD TO SEE A PHYSICIAN YOU CAN CHOSE FROM THE FOLLOWING [facility] [address] [place] [facility] [address] [facility] [address] [facility] [address] [facility] [address] [facility]. [facility] [address] [facility]. [facility] YOU HAVE RECEIVED A MEDICAL SCREENING EXAM AND THE RESULTS INDICATE THAT YOU DO NOT HAVE A CONDITION THAT REQUIRES URGENT TREATMENT IN THE EMERGENCY DEPARTMENT. FURTHER EVALUATION AND TREATMENT OF YOUR CONDITION CAN WAIT UNTIL YOU ARE SEEN IN YOUR DOCTORS OFFICE WITHIN THE NEXT 1-2 DAYS. IT IS YOUR RESPONSIBILITY TO MAKE AN APPOINTMENT FOR FOLOW-UP CARE. IF YOU HAVE A PRIMARY DOCTOR --you should call your primary doctor and schedule and appointment IF YOU DO NOT HAVE A PRIMARY DOCTOR YOU CAN CALL OUR PHYSICIAN REFERRAL HOTLINE AT . IF YOU CAN NOT AFFORD TO SEE A PHYSICIAN YOU CAN CHOSE FROM THE FOLLOWING [facility] INSTITUTIONS: [facility] [address] [place] [address] [facility] [address] [place] [address] [facility] [address] [place] [address] Additional Instructions: Thank you very much for allowing us to participate in your care. Your health and safety is our top priority at [facility]. It is important to read all discharge instructions and education provided in your discharge packet. *Proper diet changes and healthy weight loss are important to prevent constipation. Talk to your primary care doctor for a follow-up appointment with a snowmaker to reevaluate your diet choices. Consider estimating prunes as you can: Preferably the actual prune and not the juice* Call your primary care doctor TOMORROW for an appointment during the next 2-4 days and bring all the information and medications prescribed. Have prescriptions filled and follow precisely the directions on the label. -1 more dose of magnesium CITRATE tomorrow. -Docusate sodium is a stool softener. Take this medication as prescribed. You may get this medication [id number]. If the symptoms get worse and your provider is unavailable, return to the Emergency Department immediately. LUIS CARLOS CHOWDHURY NP January 09, 2019 02:05
== END 2019-01-09 00:10 | disposition home or self-care (01) ==
LOC: FTE 17:45
DX: K59.00 Constipation, unspecified (principal)
CPT/HCPCS: 74019; 81025; Z7502; Z7610